=== PATIENT | male | born 1955 | race Caucasian/White ===

== ENCOUNTER → 2017-02-05 | Day surgery (SDC) | payer MEDICARE, OTHER ==
[~2017-02-05] MED LIST: DEXAMETHASONE SOD PHOS 4 MG/ML VIAL OTHER ONE; EPINEPHrine HCL (1:1000) 1 MG/ML VIAL OTHER ONE; LACTATED RINGER'S 1000 ML INJ 1,000 ML ONE; MIDAZOLAM HCL 2 MG/2 ML VIAL ONE; MOXIFLOXACIN 0.5% OPHT SOLN 3 ML BTL ONE; ONDANSETRON HCL 4 MG/2 ML VIAL IV PUSH ONE; PHENYLEPHRINE HCL 10% OPTH SOLN 5 ML BTL ONE; PROPOFOL 200 MG/20 ML AMP IV ONE; SODIUM CHLORIDE 0.9% 10 ML VIAL IV FLUSH ONE; TETRACAINE 0.5% OPTH SOLN 15 ML BTL ONE; TOBRAMYCIN/DEXAMETHASONE OPTH OINT 3.5 GM TUBE RIGHT EYE ONE; ceFAZolin INJ 1,000 MG VIAL OTHER ONE; prednisoLONE ACETATE 1% OPHT SUSP 5 ML BTL ONE
--- NOTE | 2017-02-06 10:29 | MP ---
cc: MEGAN CAPELLAN MD DATE OF SURGERY: 02/05/2017 PREOPERATIVE DIAGNOSIS Total retinal detachment, right eye. POSTOPERATIVE DIAGNOSIS Total retinal detachment, right eye. PROCEDURE Pars plana vitrectomy, retinal attachment repair, air-fluid exchange, endolaser, right eye. COMPLICATIONS None. ESTIMATED BLOOD LOSS Less than 1 cc. ANESTHESIA General by Dr. Samaniego. INDICATION FOR PROCEDURE This is a delightful gentleman who presented with significant vision loss in his right eye. The patient was found to have a large retinal detachment through the macula. The patient needed foot surgery with osteomyelitis of his toe, and elected to proceed with pars plana vitrectomy after his toe was amputated and infection controlled. The patient now presents to the operating room for retinal detachment repair, understanding the risks, benefits and alternatives. PROCEDURE NOTE After informed consent was obtained, the patient was brought to the operating room and general anesthesia was established. The right eye was prepped and draped in sterile fashion with Betadine in the conjunctival fornix. A three-port pars plana vitrectomy was established with a self-retaining infusion cannula. Core vitreous was removed and peripheral vitreous traction relieved. 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 PFO was instilled and the retina reattached. Endolaser was applied surrounding the retinal tears and the lattice degeneration nearly 360 degrees. Scleral depression examination revealed no untreated retinal holes, tears or detachments. Air-fluid exchange was carried out and the retina remained nicely attached. 18% SF6 gas was instilled. The trocars were removed and sclerotomies closed. The conjunctiva was re-approximated with 6-0 plain gut. Subconjunctival injections of Ancef and dexamethasone were given. The eye was patched with Tobramycin ointment. The patient was brought to the recovery room in stable condition. He will continue follow-up with [facility] for his postoperative care. MD LESLIE Scott/ALISHA /11:12 PM /10:16 AM ARTHUR
== END | disposition home or self-care (01) ==
LOC: ESDC 08:06
PROVIDERS: ATTEND Ophthalmology
DX: H33.051 Total retinal detachment, right eye (principal)
CPT/HCPCS: 00145; 67108; J0171; J0690; J1100; J2250; J2405; J3010; J7120

== ENCOUNTER → 2017-02-19 | Day surgery (SDC) | payer MEDICARE, OTHER ==
[~2017-02-19] MED LIST changes: +ACETAMINOPHEN 325 MG TAB ONE; +DEXAMETHASONE SOD PHOS 4 MG/ML VIAL ONE; -DEXAMETHASONE SOD PHOS 4 MG/ML VIAL OTHER ONE; +EPINEPHrine HCL (1:1000) 1 MG/ML VIAL ONE; -EPINEPHrine HCL (1:1000) 1 MG/ML VIAL OTHER ONE; +LACTATED RINGER'S 1000 ML INJ 1,000 ML IV ONE; -LACTATED RINGER'S 1000 ML INJ 1,000 ML ONE; -SODIUM CHLORIDE 0.9% 10 ML VIAL IV FLUSH ONE; +SODIUM CHLORIDE 0.9% INJ 10 ML ONE; -TETRACAINE 0.5% OPTH SOLN 15 ML BTL ONE; +TETRACAINE 0.5% OPTH SOLN 4 ML BTL ONE; +TOBRAMYCIN/DEXAMETHASONE OPTH OINT 3.5 GM TUBE ONE; -TOBRAMYCIN/DEXAMETHASONE OPTH OINT 3.5 GM TUBE RIGHT EYE ONE; +ceFAZolin INJ 1,000 MG VIAL ONE; -ceFAZolin INJ 1,000 MG VIAL OTHER ONE
--- NOTE | 2017-03-08 07:30 | MP ---
DATE OF SURGERY 02/19/2017 PREOPERATIVE DIAGNOSIS Total retinal detachment, full-thickness macular hole right eye. POSTOPERATIVE DIAGNOSIS Total retinal detachment, full-thickness macular hole right eye. PROCEDURE Pars plana vitrectomy retinal detachment repair, endolaser, macular hole repair, removal of internal limiting membrane, insertion of 16% C3F8 gas, endolaser, right eye. COMPLICATIONS None BLOOD LOSS Less than [address] Trujillo, general INDICATIONS FOR PROCEDURE This is a delightful patient who suffered a total retinal detachment of his right eye. The patient initially had a supratemporal retinal detachment which was nearly total at the time of presentation and surgery. Postoperatively, the patient was unable to maintain position and suffered inferior positional inferior retinal breaks, retinal detachment and full-thickness macular hole. The patient elected for surgical correction. The patient adamantly reports that he can maintain postoperative positioning after the surgery and wants repair via vitrectomy and without scleral buckle placement. PROCEDURE NOTE After informed consent was obtained, the patient brought to the operating room, general anesthesia was established. The right eye was prepped and draped in a sterile fashion with Betadine in the conjunctival fornix. A three port pars plana vitrectomy was established with a self-retaining infusion cannula. The peripheral vitreous was removed and vitreous traction relieved. The ILM was highlighted with ICG and removed with Saleem ILM forceps. The retina had renewed mobility. Air-fluid exchange was carried out and the retina completely reattached. Endolaser was applied 360 degrees surrounding both new an old retinal tears. The macular hole was noted to close under air. 16% C3F8 gas was instilled and the retina remained nicely attached. Trocars removed and sclerotomies closed. A subconjunctival injection of Ancef and dexamethasone were given. The eye was patched with Tobramycin ointment. The patient was brought to the recovery room in stable condition and will maintain in a prone position. The patient will continue followup with [facility] for his postoperative care. MD LESLIE Scott/CESARIO /4:52 PM /7:16 AM ARTHUR
== END | disposition home or self-care (01) ==
LOC: ESDC 10:55
PROVIDERS: ATTEND Ophthalmology
DX: H33.011 Retinal detachment with single break, right eye (principal); H35.341 Macular cyst, hole, or pseudohole, right eye
CPT/HCPCS: 00145; 67108; J0171; J0690; J1100; J2250; J2405; J3010; J7120